=== PATIENT | male | born 2000 | race Caucasian/White ===

== ENCOUNTER 2023-05-26 07:01 | Emergency (ER) | payer OTHER ==
[~2023-05-26] VITALS: Ht 177.8 cm; Wt 68.0 kg
[2023-05-26 07:02] VITALS: O2SAT 100
[2023-05-26 07:45] LABS: BASOPHILS % 0.6 % (0.0-2.0); EOSINOPHILS % 0.6 % (0.0-5.0); HEMATOCRIT. 42.5 % (42.0-52.0); HEMOGLOBIN. 14.2 g/dL (14.0-18.0); LYMPHOCYTES % 14.9 % (20.0-50.0); MEAN CORPUSCULAR HEMOGLOBIN 33.2 pg (28.0-32.0); MEAN CORPUSCULAR HGB CONC 33.4 g/dL (31.0-37.0); MEAN CORPUSCULAR VOLUME 99.4 fL (80.0-94.0); MEAN PLATELET VOLUME 9.3 fl (7.4-10.4); MONOCYTES % 5.9 % (2.0-8.0); PLATELET 253 x1000/uL (130-400); RED BLOOD CELL COUNT 4.27 mill/uL (4.7-6.1); RED CELL DISTRIBUTION WIDTH 13.6 % (11.6-14.6); WHITE BLOOD COUNT 11.2 x1000/uL (4.5-11.0)
[2023-05-26] MEDS: SODIUM CHLORIDE 0.9% 1,000 ML IV ONE (07:52)
[2023-05-26] MEDS: MORPHINE SULFATE 4 MG/ML CPJ (NOT FOR IM USE) IV STA (07:52)
[2023-05-26] MEDS: ONDANSETRON HCL 4MG/2ML INJ IV STA (07:52)
[2023-05-26 08:00] LABS: INR 1.1; PROTHROMBIN TIME 11.9 sec (9.6-11.0)
[2023-05-26 08:09] LABS: ALANINE AMINOTRANSFERASE 10 IU/L (10-49); ALBUMIN 4.6 g/dL (3.2-4.8); ASPARTATE AMINOTRANSFERASE 15 IU/L (<34); BILIRUBIN TOTAL 2.5 mg/dL (0.1-1.0); CALCIUM 9.1 mg/dL (8.7-10.4); CARBON DIOXIDE 23 mEq/L (21-32); CHLORIDE 105 mEq/L (98-107); CREATININE 0.9 mg/dL (0.6-1.3); GLUCOSE 174 mg/dL (70-105); POTASSIUM 3.7 mEq/L (3.5-5.1); PROTEIN TOTAL 7.4 g/dL (6.0-8.3); SODIUM 136 mEq/L (136-145); UREA NITROGEN BLOOD 12 mg/dL (9-23)
[2023-05-26] MEDS: KETOROLAC 15MG/ML VIAL IV ONE (08:25)
[2023-05-26] MEDS: IOHEXOL-300 100 ML BOTTLE ONE (09:24)
[2023-05-26] MEDS: TAMSULOSIN HCL 0.4MG SR CAPSULE PO SCH (10:22)
[2023-05-26 11:46] LABS: CLARITY URINE CLEAR (CLEAR); COLOR URINE YELLOW (YELLOW); GLUCOSE URINE NEGATIVE (NEGATIVE); KETONES URINE 2+ (NEGATIVE); LEUKOCYTE ESTERASE URINE NEGATIVE (NEGATIVE); NITRITE URINE NEGATIVE (NEGATIVE); OCCULT BLOOD URINE 2+ (NEGATIVE); PROTEIN URINE NEGATIVE (NEGATIVE); SPECIFIC GRAVITY URINE 1.041 (1.005-1.030); UROBILINOGEN URINE 0.2 E.U./dL (0.2-1.0)
[2023-05-26] MEDS ORDERED: TAMS-11 MT (11:59)
[2023-05-26] MEDS ORDERED: IBUP-2437 MT (11:59)
[2023-05-26 12:35] LABS: MUCUS URINE 1+ /lpf (NONE/TRACE); SQUAMOUS EPITHELIAL CELL URINE FEW /lpf (RARE/1+)
[2023-05-26 12:36] LABS: BACTERIA URINE TRACE; RBC URINE 15-25 /hpf (0-2); WBC URINE 0-2 /hpf (0-2)
[2023-05-26 12:39] VITALS: BP 130/74; PULSE 95; RESP 18; TEMP 98.5
== END 2023-05-26 12:40 | disposition home or self-care (01) ==
LOC: ER 07:01
DX: N20.0 Calculus of kidney (principal); R10.9 Unspecified abdominal pain
CPT/HCPCS: 80053; 81003; 83690; 85025; 85610; 36415; 71045; 74177; 96361; 96374; 96375; 99285; Q9967; J1885; J2405; J2270; J7030; Z7610 ×3